=== PATIENT | male | born 1980 | race Caucasian/White ===

== ENCOUNTER 2022-10-31 18:15 | Emergency (ER) | payer SELFPAY ==
[2022-10-31 18:23] VITALS: BP 130/79; PULSE 100; RESP 18; TEMP 98.6; O2SAT 98
[2022-10-31] MEDS ORDERED: Zofran 4 MG/2 ML VIAL IM ONE (18:42)
[2022-10-31] MEDS ORDERED: TORAdol 30 mg Injection IM ONE (18:42)
[2022-10-31] MEDS ORDERED: TORAdol 30 mg Injection IV ONE (18:46)
[2022-10-31] MEDS ORDERED: Zofran 4 MG/2 ML VIAL IV ONE (18:46)
[2022-10-31] MEDS ORDERED: Zofran 4 MG/2 ML VIAL ONE (18:47)
[2022-10-31] MEDS ORDERED: TORAdol 30 mg Injection ONE (18:47)
--- NOTE | 2022-10-31 18:48 | ERPHSYRPT ---
- History of Present Illness Time Seen by Provider: 10/31/22 18:45 Source: patient Exam Limitations: no limitations Patient Subjective Stated Complaint: pt here for food bolus, [place] [facility] [place] [facility] [place] when he got scared and came here, co pain to right side o f chest, Triage Nursing Assessment: pt alert, resp easy, skin warm, sweaty, has iv to left arm, pt unable to lay in bed, states hurts to swallow Physician History: Patient is 41-year-old male was in his usual state of health was trying to eat large food bolus and choked on it. So he went to the emergency room at [facility] where he was treated and then he was planned to be transferred to [facility]. Patient preferred to go by private car. On the way in his private car he suddenly have another episode of choking and he started having a right side chest wall pain and started spitting up some phlegm with some blood in it so on the way they stop by at [facility] emergency room. Timing/Duration: today Associated Symptoms: cough, chest pain (right side, unable to take a deep breath), No shortness of breath Allergies/Adverse Reactions: No Known Drug Allergies Allergy (Unverified 10/31/22 18:26) Home Medications: Unobtainable 10/31/22 [History] Hx Influenza Vaccination/Date Given: No Hx Pneumococcal Vaccination/Date Given: No Immunizations Up to Date: Yes Travel Risk - International Travel Have you traveled outside of the country in past 3 weeks: No - Coronavirus Screening Are you exhibiting any of the following symptoms?: No Close contact with a COVID-19 positive Pt in past 14-21 Days: No - Vaccine Status Have you recieved a Covid-19 vaccination: No Utilities Ground Worker: Unknown - Vaccination Dates Dates if Unknown: ? - Review of Systems Constitutional: No Fever, No Chills Eyes: No Symptoms Ears, Nose, & Throat: No Symptoms Respiratory: No Cough, No Dyspnea, No Stridor Cardiac: Chest Pain, No Edema, No Syncope Abdominal/Gastrointestinal: No Abdominal Pain, No Nausea, No Vomiting, No Diarrhea Genitourinary Symptoms: No Dysuria Musculoskeletal: No Back Pain, No Neck Pain Skin: No Rash Neurological: No Dizziness, No Focal Weakness, No Sensory Changes Psychological: No Symptoms Endocrine: No Symptoms All Other Systems: Reviewed and Negative - Past Medical History Pertinent Past Medical History: Yes Cardiac History: Hypertension - Past Surgical History Past Surgical History: Yes Other Surgical History: sinus surg - Social History Smoking Status: Never smoker Exposure to second hand smoke: No Drug Use: none Patient Lives Alone: No - Nursing Vital Signs Nursing Vital Signs: Initial Vital Signs Temperature 98.6 F 10/31/22 18:21 Pulse Rate 100 10/31/22 18:21 Respiratory Rate 18 10/31/22 18:21 Blood Pressure 130/79 10/31/22 18:21 O2 Sat by Pulse Oximetry 98 10/31/22 18:21 Pain Scale Pain Intensity 7 - Physical Exam General Appearance: no apparent distress, alert Eye Exam: PERRL/EOMI, eyes nml inspection Ears, Nose, Throat Exam: normal ENT inspection, TMs normal, pharynx normal, moist mucous membranes Neck Exam: normal inspection, non-tender, supple, full range of motion Respiratory Exam: diminished breath sounds, No respiratory distress, No accessory muscle use, No prolonged expirations, No stridor, No pleural rub Cardiovascular Exam: regular rate/rhythm, normal heart sounds, normal peripheral pulses Gastrointestinal/Abdomen Exam: soft, normal bowel sounds, No tenderness, No mass Back Exam: normal inspection, normal range of motion, No CVA tenderness, No vertebral tenderness Extremity Exam: normal inspection, normal range of motion, pelvis stable Neurologic Exam: alert, oriented x 3, cooperative, normal mood/affect, nml cerebellar function, nml station & gait, sensation nml, No motor deficits Skin Exam: normal color, warm, dry, No rash Lymphatic Exam: No adenopathy SpO2: 98 - Course Nursing assessment & vital signs reviewed: Yes - Radiology Exams Chest X-ray Interpretation: Reviewed by me, Negative, No Pneumothorax Ordered Tests: Active Orders 24 hr Category Date Time Status CHEST 2 VIEWS (PA AND LAT) Routine Exams 10/31/22 18:49 Taken CHEST 2 VIEWS (PA AND LAT) Stat Exams 10/31/22 18:45 Incomplete Medication Summary Discontinued Medications Generic Name Dose Route Start Last Admin Trade Name Freq PRN Reason Stop Dose Admin Ketorolac Tromethamine 60 mg 10/31/22 18:42 10/31/22 18:45 Ketorolac Tromethamine 30 Mg/Ml Inj IM 10/31/22 18:43 Not Given STAT ONE Ketorolac Tromethamine 30 mg 10/31/22 18:46 10/31/22 18:50 Ketorolac Tromethamine 30 Mg/Ml Inj IV 10/31/22 18:47 30 mg STAT ONE Administration Ketorolac Tromethamine Confirm 10/31/22 18:47 Ketorolac Tromethamine 30 Mg/Ml Inj Administered 10/31/22 18:48 Dose 30 mg .ROUTE .STK-MED ONE Ondansetron HCl 4 mg 10/31/22 18:42 10/31/22 18:45 Ondansetron Hcl 4 Mg/2 Ml Vial IM 10/31/22 18:43 Not Given STAT ONE Ondansetron HCl 4 mg 10/31/22 18:46 10/31/22 18:50 Ondansetron Hcl 4 Mg/2 Ml Vial IV 10/31/22 18:47 4 mg STAT ONE Administration Ondansetron HCl Confirm 10/31/22 18:47 Ondansetron Hcl 4 Mg/2 Ml Vial Administered 10/31/22 18:48 Dose 4 mg .ROUTE .STK-MED ONE - Progress Progress: unchanged Counseled pt/family regarding: diagnosis, need for follow-up, rad results Medical Desision Making - Risk of complications The pt has a mod risk of morbidity or mortality based on: Need for minor surgical intervention in patient with know risk factors - Departure Departure Disposition: Transfer ([facility]) Clinical Impression: Choking due to food (regurgitated) Qualifiers: Encounter type: initial encounter Qualified Code(s): T17.320A - Food in larynx causing asphyxiation, initial encounter Condition: Stable Critical Care Time: Yes Critical Care Time(excluding separately billable procedures): Critical 30-74 mins Additional Instructions: Discharge/Care Plan BHUPINDER BARNETT Dee was seen on 10/31/22 in the Emergency Room. The patient was counseled regarding Diagnosis,Lab results, Imaging studies, need for follow up and when to return to the Emergency Room. Prescriptions given: Discharge Note I have spoken with the patient and/or caregivers. I have explained the patient's condition, diagnosis and treatment plan based on the information available to me at this time. I have answered the patient's and/or caregiver's questions and addressed any concerns. The patient and/or caregivers have as good understanding of the patient's diagnosis, condition and treatment plan as can be expected at this point. The vital signs have been stable. The patient's condition is stable and appropriate for discharge from the emergency department. The patient will pursue further outpatient evaluation with the primary care physician or other designated or consulting physician as outlined in the discharge instructions. The patient and/or caregivers are agreeable to this plan of care and follow-up instructions have been explained in detail. The patient and/or caregivers have received these instruction. The patient/and or caregivers are aware that any significant change in condition or worsening of symptoms should prompt an immediate return to this or the closest emergency department or call 911. BHUPINDER BARNETT was seen on 10/31/22 n the Emergency Room. At that time you were treated for an emergent condition, during your visit Laboratory, Radiology and/or other procedures may have been ordered. It is very important that you follow-up with your Primary Care Physician DIANA TAYLOR within the next 24-48 hours to review your Emergency Room visit and the final results of testing that was ordered. Some test results such as Urine Cultures, Blood Cultures, and other cultures if ordered will not be finalized for 24-48 hours. If you do not have a Primary Care Provider please call the medical records depa rtment at [phone] to obtain a copy of your results or you may sign into our patient portal to obtain these results by visiting us @ [email or web address] and completing the following steps: 1. Click on the Patient Portal link 2. Click the Patient Self Enrollment Link to complete the enrollment form and entering your 3. Once the enrollment form is completed you will receive an email with a temporary ID and password at the email address you provided. 4. Next choose a user name and password. Your user name must be at least 4 characters long and your password must be at least 4 characters long. 5. Choose a security question from the list and provide your answer to the question. If you already have signed into the Health Portal you may access your Health Care Information 19/10 by the following steps: 1. Login to our website @ [email or web address] 2. Enter your original user name and password. FAQS The [facility] Health Portal is an online tool that contains your Lab Results, Radiology Reports, Visit History, Discharge Instructions and Health Summary Lab and Radiology Results will not be available for 72 hours on the portal. The Portal is a secure site, passwords are encryted and URLs are re-written so they cannot be copied and pasted. You and authorized family members are the only ones who can access your Portal. Also there is a timeout feature that protects your information if you leave the Portal page open. If you have technical difficulty please use the Contact Us link on the page this will allow you to submit any questions you have regarding the Portal or you may contact the Medical Record Department at [phone] ext [phone].
--- NOTE | 2022-10-31 22:06 | XRAY ---
Indication: Food bolus. Comparison: None PA/lateral chest slightly underinflated with hazy bibasilar infiltrates versus atelectasis, right greater than left. Remaining heart, lungs, and bony thorax unremarkable.
== END 2022-10-31 19:25 | disposition short-term general hospital (02) ==
LOC: ED 18:15
DX: T17.320A Food in larynx causing asphyxiation, initial encounter (principal); R07.9 Chest pain, unspecified; I10 Essential (primary) hypertension
CPT/HCPCS: 71046; 96374; 96375; 99284; 99291; J1885; J2405